=== PATIENT | male | born 1990 | race Two or more races ===

== ENCOUNTER 2020-03-23 11:52 | Outpatient (REF) | payer OTHER, SELFPAY | END 2020-03-23 11:53 | disposition home or self-care (01) | LOC: HO.LAB 11:52 | PROVIDERS: Visit Provider Internal Medicine | DX: Z20.828 Contact with and (suspected) exposure to other viral communicable diseases (principal) | CPT/HCPCS: C9803; U0003 ==

== ENCOUNTER 2020-03-27 10:51 | Outpatient (REF) | payer OTHER, SELFPAY | END 2020-03-27 10:52 | disposition home or self-care (01) | LOC: HO.LAB 10:51 | PROVIDERS: Visit Provider Internal Medicine | DX: Z20.828 Contact with and (suspected) exposure to other viral communicable diseases (principal) | CPT/HCPCS: C9803; U0003 ==